=== PATIENT | female | born 2000 | race Caucasian/White ===

== ENCOUNTER 2019-02-26 23:29 | Emergency (ER) | payer OTHER ==
[~2019-02-26] VITALS: Ht 157.5 cm; Wt 56.8 kg
[2019-02-27] MEDS ORDERED: ONDANSETRON 4 MG ORAL DISINTEGRATING TAB (Q0162 PER 1MG) PO ONE (00:15)
[2019-02-27 00:27] LABS: URINE PREG TEST NEGATIVE (NEGATIVE)
[2019-02-27 01:54] LABS: CHLAMYDIA DNA AMPLIFICATION NEGATIVE (NEGATIVE); GC DNA AMPLIFICATION NEGATIVE (NEGATIVE)
[2019-02-27] MEDS ORDERED: ACETAMINOPHEN TAB 650MG DOSE (2X325MG) PO ONE (02:00)
[2019-02-27] MEDS ORDERED: PYRI1TAB5 PO (03:14)
[2019-02-27] MEDS ORDERED: CIPR-249 PO (03:14)
[2019-02-27] MEDS ORDERED: PHENAZOPYRIDINE 100 MG TAB PO ONE (03:15)
[2019-02-27] MEDS ORDERED: CIPROFLOXACIN 500 MG TAB PO ONE (03:15)
[2019-02-27 03:26] VITALS: BP 112/70
== END 2019-02-27 03:31 | disposition home or self-care (01) ==
LOC: M ED 23:29
DX: N39.0 Urinary tract infection, site not specified (principal); E28.2 Polycystic ovarian syndrome; Z79.3 Long term (current) use of hormonal contraceptives; Z88.0 Allergy status to penicillin
CPT/HCPCS: 36415; 81001; 84703; 87088; 87186; 87210; 87491; 87591; 99284; Q0162

== ENCOUNTER → 2019-07-16 | Outpatient (REF) | payer OTHER ==
[~2019-07-16] MED LIST: CIPR-249 PO; PYRI1TAB5 PO
== END ==
LOC: M LAB REF 12:52
PROVIDERS: ATTEND Advanced Practice Midwife
DX: Z12.4 Encounter for screening for malignant neoplasm of cervix (principal); N76.0 Acute vaginitis